=== PATIENT | female | born 1985 | race Asian ===

== ENCOUNTER 2017-07-06 09:24 | Inpatient (IN) | payer MEDICAID ==
[~2017-07-06] VITALS: Ht 154.9 cm; Wt 48.1 kg
[2017-07-06 10:21] LABS: microscopic required? YES; urine erythrocyte 3+ (NEGATIVE)
[2017-07-06 10:38] LABS: BASOPHIL % 0.1 % (0-2); PLATELET COUNT 263 x10^3mcL (130-400); RED CELL DISTRIBUTION WIDTH 12.3 % (11.5-14.5)
[2017-07-06 10:48] LABS: CALCIUM 8.9 mg/dL (8.5-10.1); CARBON DIOXIDE 26.1 mmol/L (21-32); CHLORIDE SERUM 101 mmol/L (98-107); CREATININE SERUM 0.8 mg/dL (0.6-1.0); GFR1 > 60 mL/min; GLUCOSE SERUM 118 mg/dL (74-106); POTASSIUM SERUM 3.6 mmol/L (3.5-5.1); SODIUM SERUM 136 mmol/L (136-145)
[2017-07-06 10:52] LABS: ALBUMIN 3.7 g/dL (3.4-5.0); ALKALINE PHOSPHATASE 66 U/L (46-116); ALT/SGPT 17 U/L (14-59); AST/SGOT 15 U/L (15-37); BILIRUBIN TOTAL 0.4 mg/dL (0.20-1.00)
[2017-07-06 10:59] LABS: TOTAL PROTEIN, SERUM 8.9 g/dL (6.4-8.2)
[2017-07-06 12:30] LABS: TOTAL PROTEIN CSF 45.6 mg/dL (15-45)
[2017-07-06 13:56] LABS: APPEARANCE CSF CLEAR; COLOR CSF COLORLESS
[2017-07-06 13:57] LABS: LYMPHOCYTE CSF 74 % (40-80); MONOCYTE CSF 18 %; RBC CSF 9 /cumm (0); WBC CSF 31 /cumm (0-5)
[2017-07-06 14:10] LABS: COLOR CSF RED
[2017-07-06 14:11] LABS: APPEARANCE CSF BLOODY; LYMPHOCYTE CSF 64 % (40-80); MONOCYTE CSF 6 %; RBC CSF 2900 /cumm (0); WBC CSF 30 /cumm (0-5)
[2017-07-06 14:15] LABS: CHOLESTEROL/HDL RATIO 3.2; MAGNESIUM 2.1 mg/dL (1.8-2.4); PHOSPHOROUS 2.6 mg/dL (2.5-4.9)
[2017-07-06 14:21] LABS: T3 TOTAL 1.04 ng/mL
[2017-07-06 14:56] VITALS: BP 99/67
[2017-07-06 14:56] LABS: FREE T4 1.35 ng/dL (0.76-1.46)
[2017-07-06 14:59] LABS: FREE THYROXINE INDEX 4.8 ug/dL (1.4-4.5); T4(THYROXINE) 14.4 ug/dL (4.7-13.3)
[2017-07-06 15:13] LABS: AMPHETAMINE QUAL UR NONE DETECTED (NEG <=1000)
[2017-07-06 16:30] VITALS: BP 97/65
[2017-07-06] MEDS ORDERED: MONONESSA1 TAB PO (17:00)
[2017-07-06 20:00] VITALS: BP 94/56
[2017-07-07 05:26] VITALS: BP 94/56
[2017-07-07 05:59] LABS: BASOPHIL % 0.2 % (0-2); PLATELET COUNT 237 x10^3mcL (130-400); RED CELL DISTRIBUTION WIDTH 12.4 % (11.5-14.5)
[2017-07-07 06:20] LABS: CALCIUM 8.1 mg/dL (8.5-10.1); CARBON DIOXIDE 24.7 mmol/L (21-32); CHLORIDE SERUM 107 mmol/L (98-107); CREATININE SERUM 0.6 mg/dL (0.6-1.0); GFR1 > 60 mL/min; GLUCOSE SERUM 124 mg/dL (74-106); SODIUM SERUM 139 mmol/L (136-145)
[2017-07-07 10:25] VITALS: BP 100/71
[2017-07-07 13:35] VITALS: BP 106/71
[2017-07-07 17:46] VITALS: BP 102/67
[2017-07-07 20:52] VITALS: BP 121/87
[2017-07-08 05:38] VITALS: BP 92/61
[2017-07-08 06:14] LABS: BASOPHIL % 0.2 % (0-2); PLATELET COUNT 245 x10^3mcL (130-400); RED CELL DISTRIBUTION WIDTH 12.4 % (11.5-14.5)
[2017-07-08 06:29] LABS: CARBON DIOXIDE 27.6 mmol/L (21-32); CHLORIDE SERUM 104 mmol/L (98-107); CREATININE SERUM 0.6 mg/dL (0.6-1.0); GFR1 > 60 mL/min; GLUCOSE SERUM 89 mg/dL (74-106); MAGNESIUM 1.9 mg/dL (1.8-2.4); PHOSPHOROUS 2.8 mg/dL (2.5-4.9); SODIUM SERUM 140 mmol/L (136-145)
[2017-07-08 10:15] VITALS: BP 94/67
[2017-07-08 16:40] VITALS: BP 110/80
[2017-07-08 21:37] VITALS: BP 105/78
[2017-07-09 05:33] VITALS: BP 102/64
[2017-07-09 06:05] LABS: BASOPHIL % 0.4 % (0-2); PLATELET COUNT 279 x10^3mcL (130-400); RED CELL DISTRIBUTION WIDTH 12.4 % (11.5-14.5)
[2017-07-09 06:16] LABS: CALCIUM 8.8 mg/dL (8.5-10.1); CARBON DIOXIDE 28.7 mmol/L (21-32); CHLORIDE SERUM 106 mmol/L (98-107); CREATININE SERUM 0.6 mg/dL (0.6-1.0); GFR1 > 60 mL/min; GLUCOSE SERUM 97 mg/dL (74-106); MAGNESIUM 2.2 mg/dL (1.8-2.4); PHOSPHOROUS 3.2 mg/dL (2.5-4.9); POTASSIUM SERUM 4.4 mmol/L (3.5-5.1); SODIUM SERUM 139 mmol/L (136-145)
[2017-07-09] MEDS ORDERED: CYCLOBENZAPRINE5 MG PO (06:24)
[2017-07-09] MEDS ORDERED: LAC PO (06:25)
[2017-07-09] MEDS ORDERED: LEVAQUIN750 MG PO (06:38)
[2017-07-09] MEDS ORDERED: LEVOFLOXACIN500 M1 PO (08:48)
[2017-07-09 09:19] VITALS: BP 95/61
[2017-07-09 09:50] VITALS: BP 95/61
[2017-07-09] MEDS ORDERED: LEVAQUIN250 M1 PO (10:22)
== END 2017-07-09 11:30 | disposition home or self-care (01) | DRG 463 ==
LOC: ED 09:24 → DU 13:30
PROVIDERS: Emergency Medicine; ADMIT Family Medicine
PROC: 009U3ZX Drainage of Spinal Canal, Percutaneous Approach, Diagnostic (ICD-10-PCS; principal; 2017-07-06)
PROC: 7W01X1Z Osteopathic Treatment of Cervical Region using Fascial Release (ICD-10-PCS; 2017-07-07)
DX: N39.0 Urinary tract infection, site not specified (principal); N17.0 Acute kidney failure with tubular necrosis; G93.41 Metabolic encephalopathy; M99.01 Segmental and somatic dysfunction of cervical region; E05.90 Thyrotoxicosis, unspecified without thyrotoxic crisis or storm; E83.51 Hypocalcemia; R80.9 Proteinuria, unspecified; D64.9 Anemia, unspecified; E78.5 Hyperlipidemia, unspecified; Z68.30 Body mass index [BMI] 30.0-30.9, adult
CPT/HCPCS: 83880; 84439; 86788; 86789; 87804; J0133; J0696; J1100; J1885; J2001; J2270; J2405; J3030; J7030; Q0092